=== PATIENT | male | born 1965 | race Two or more races ===

== ENCOUNTER 2018-07-07 06:41 | Day surgery (SDC) | payer OTHER ==
[2018-07-07] MEDS ORDERED: LIDOCAINE 2% (SDV) 5 ML INJ (07:00)
[2018-07-07] MEDS ORDERED: CEFAZOLIN 2 GM/50 ML (PMX) 50 ML (FOR WT < 120 KG) IVPB (08:00)
[2018-07-07] MEDS ORDERED: PROPOFOL 20 ML (10:45)
[2018-07-07] MEDS ORDERED: SUCCINYLCHOLINE CHLORIDE 100 MG/5 ML SYG IV (10:45)
[2018-07-07] MEDS ORDERED: MIDAZOLAM 1 MG/ML 2 ML INJ (10:45)
[2018-07-07] MEDS ORDERED: ROCURONIUM 50 MG INJ (10:45)
[2018-07-07] MEDS ORDERED: LIDOCAINE 2 GM/D5W 500 ML (10:45)
[2018-07-07] MEDS ORDERED: CEFAZOLIN 1 GM INJ (10:54)
[2018-07-07] MEDS ORDERED: FENTAnyl 50 MCG/ML VIAL (10:55)
[2018-07-07] MEDS ORDERED: FAMOTIDINE 20 MG INJ (11:00)
[2018-07-07] MEDS ORDERED: ONDANSETRON 4 MG INJ (11:00)
[2018-07-07] MEDS ORDERED: PROCHLORPERAZINE 10 MG INJ IV (11:30)
[2018-07-07] MEDS ORDERED: DIPHENHYDRAMINE 50 MG INJ IV (11:30)
[2018-07-07] MEDS ORDERED: HYDROmorphONE 1 MG/5 ML IV SYRINGE IV (11:30)
[2018-07-07] MEDS ORDERED: FENTAnyl 50 MCG/ML VIAL IV ×2 (11:30)
[2018-07-07] MEDS ORDERED: ONDANSETRON 4 MG INJ IV (11:30)
[2018-07-07] MEDS ORDERED: MEPERIDINE 25 MG INJ IV (11:30)
[2018-07-07] MEDS ORDERED: NEOMYC/POLYMYX/BACIT 30 GM OINT (11:56)
[2018-07-07] MEDS: BUPIVACAINE 0.25% (MPF) 30 ML INJ (12:01)
[2018-07-07] MEDS ORDERED: ROPIVACAINE 0.5 % 30 ML VIAL (12:09)
[2018-07-07] MEDS: HYDROmorphONE 1 MG/5 ML IV SYRINGE IV ×3 (12:41→12:51)
[2018-07-07] MEDS: FENTAnyl 50 MCG/ML VIAL IV ×2 (12:54→13:04)
[2018-07-07] MEDS ORDERED: OXYCODONE/ACETAMINOPHEN (5/325) TAB PO (13:00)
[2018-07-07] MEDS: ACETAMINOPHEN 1000MG/100ML IV 100 ML IVPB (13:22)
[2018-07-07] MEDS ORDERED: oxyCODONE 5 MG TAB PO (13:30)
[2018-07-07] MEDS: oxyCODONE 5 MG TAB PO (14:08)
== END 2018-07-07 14:58 | disposition home or self-care (01) ==
LOC: SDS 06:41
DX: S52.571A Other intraarticular fracture of lower end of right radius, initial encounter for closed fracture (principal); E11.9 Type 2 diabetes mellitus without complications; X58.XXXA Exposure to other specified factors, initial encounter; Y93.89 Activity, other specified; Y92.488 Other paved roadways as the place of occurrence of the external cause; Y99.8 Other external cause status
CPT/HCPCS: 25609; 73110-RT; 82962; J2001